=== PATIENT | female | born 1955 | race Caucasian/White ===

== ENCOUNTER → 2017-11-04 | Outpatient (CLI) | payer OTHER, MEDICARE ==
[~2017-11-04] MED LIST: CLONAZEPAM PO; COLACE100 MG OR; COLACE100 MG PO; DIAZEPAM 10 MG10 M1 PO; HYDROCODONE-AP1 EA10 PO; LYRICA 75 MG CA75 MG PO; MEDROLDOSEPACK PO; MOBIC15 MG PO; MOM OR; VICODIN PO; ZANAFLEX4 M1 PO
== END ==
LOC: M.RAD 10:28
DX: M43.27 Fusion of spine, lumbosacral region (principal); M47.896 Other spondylosis, lumbar region; M48.061 Spinal stenosis, lumbar region without neurogenic claudication; M54.42 Lumbago with sciatica, left side; M54.41 Lumbago with sciatica, right side

== ENCOUNTER → 2018-09-19 | Outpatient (CLI) | payer MEDICARE, OTHER | LOC: M.RAD 10:50 | DX: M47.896 Other spondylosis, lumbar region (principal); G89.29 Other chronic pain; Z98.890 Other specified postprocedural states ==

== ENCOUNTER → 2018-09-26 | Outpatient (CLI) | payer MEDICARE, OTHER ==
[2018-09-26 10:44] LABS: CREATININE 0.9 mg/dL (0.6-1.3)
== END ==
LOC: M.LAB 09-19 14:31
PROVIDERS: Internal Medicine
DX: K76.0 Fatty (change of) liver, not elsewhere classified (principal); M47.816 Spondylosis without myelopathy or radiculopathy, lumbar region; N28.1 Cyst of kidney, acquired; G89.29 Other chronic pain; Z88.8 Allergy status to other drugs, medicaments and biological substances; Z90.49 Acquired absence of other specified parts of digestive tract

== ENCOUNTER → 2019-02-22 | Outpatient (CLI) | payer MEDICARE, OTHER | LOC: M.MRI 15:25 | DX: M19.90 Unspecified osteoarthritis, unspecified site (principal); M43.27 Fusion of spine, lumbosacral region; G89.29 Other chronic pain; Z98.1 Arthrodesis status ==

== ENCOUNTER → 2019-03-01 | Outpatient (CLI) | payer MEDICARE, OTHER | LOC: M.MRI 17:11 | DX: M48.061 Spinal stenosis, lumbar region without neurogenic claudication (principal); M51.16 Intervertebral disc disorders with radiculopathy, lumbar region; M47.26 Other spondylosis with radiculopathy, lumbar region; M43.27 Fusion of spine, lumbosacral region ==

== ENCOUNTER → 2019-03-23 | Outpatient (CLI) | payer MEDICARE, OTHER ==
[~2019-03-23] MED LIST changes: +AMITRIPTYLINE H25 M2 PO; +MOBIC7.5 MG PO; +ULTRACET TABLET1 TAB PO; +ULTRAM 50MG TAB50 MG PO
--- NOTE | ~2019-03-23 | PAINCON ---
[address] [address] PAIN MANAGEMENT CONSULTATION Name: JESUSWILLIAMS JENNI [id number] Admission: 03/23/19 Attend Phys: Carol Clemente MD Discharge: Date of : 51 Report #: [id number] THIS REPORT FOR: //name// CC: Alexis Clemente DATE OF SERVICE: 03/23/2019 CHIEF COMPLAINT: Bilateral low back pain as well as pain in the arms. HISTORY: The patient is a 63-year-old female who has been referred to the pain clinic for evaluation of chronic pain. The patient has a history of lumbar radiculopathy. Because of the severity of her back problems, she has undergone surgery. She has had back surgery with placement of rods and pedicle screws. She has a history of scoliosis. She has had operations on 2 occasions. She has numerous areas of pain. She has suffered from rotator cuff problems. She has had right knee surgery, had right lower leg surgery, has had right foot surgery. She has had problems with carpal tunnel involving the right hand. She has a number of family members who also suffer from osteoarthritic type of pain. She has used tramadol in the past. She found that medication is helpful. She would like to resume its use. She finds activities of daily living to be quite problematic. Feels that sweeping, vacuuming and other activities of daily living can be quite problematic. Finds that use of warmth is helpful. Generally, she likes to keep her house warm. She sleeps on a blanket above and below her. Has complaints of swelling and inflammation in her ankles on both sides, has been problematic for quite some time. Her pain can be quite problematic and cause her sometimes to cry because of frustration and the severity of her pain. She has a sister who has cancer and is undergoing chemotherapy. She sometimes visits her in [place]. In [place], she has found tramadol could be purchased [id number]. She finds that, that medication has been helpful. She would like to try it again to note its efficacy and decreasing her pain and discomfort. ALLERGIES: No known drug allergies. CURRENT MEDICATIONS: Amitriptyline 25 mg total of 50 mg at bedtime, clonazepam 2 mg, meloxicam 7.5 mg, tramadol 37.5/325. PAST MEDICAL HISTORY: Arthritis, lumbar radicular pain. PAIN CLINIC ASSESSMENT AND PQRS: 1. The patient has osteoarthritic changes in her back. She is not being treated for rheumatoid arthritis. 2. Height 5 feet 5 inches, weight 185 pounds, BMI is 30. 3. Vital Signs: Blood pressure 133/62, heart rate 109, respiratory rate 16, room air saturation 95%, [place] 98[place] [address] PAIN MANAGEMENT CONSULTATION Name: WILLIAMS LEE Room: [facility]#: [id number] Admission: 03/23/19 Attend Phys: Carol Clemente MD Discharge: Date of : 51 Report #: [id number] 4. Pain intensity is 8/10. 5. Fall history. The patient has not fallen in the last 3 months. 6. Blood thinner. The patient is not on a blood thinning medication. 7. Hypertension. The patient is not being treated for hypertension. 8. Opioids greater than 6 weeks. The patient is not on an opioid regimen. 9. Risk assessment tool, low for opioid use. 10. Functional assessment tool. 11. Recreational drug use, the patient denies. 12. Tobacco: The patient denies. 13. Alcohol: The patient denies frequent use of alcoholic beverages. PHYSICAL EXAMINATION: GENERAL: The patient is a well-developed, well-nourished, female. Appears her stated age. She is alert and oriented x 3. Her affect is appropriate. Speech is fluent, somewhat choppy, Croatian does not appear to be her first language. NECK: Without adenopathy or JVD. MUSCULOSKELETAL: Upper extremity muscle strength judged to be 5-/5 for the major muscle groups in the upper extremity. The patient complains of pain involving her right hand with carpal tunnel syndrome. The patient also has some decreased strength in her left hand. She has had problems with her hand greater than 15 and has been problematic for quite a number of years. HEART: Regular rate. ABDOMEN: Nontender. Bowel sounds present. EXTREMITIES: The patient has a well-healed scar in the lower portion of her back. The patient stands listing to the right. The patient has a well-healed scar in the right knee, well-healed scar in the anterior portion of her tibia and a well-healed scar in her right foot. The patient states that she has had a fracture of her ankle on the right side. Walks and moves with a limp. Has perception of some weakness in her right leg. LABORATORY DATA: MRI of the lumbar spine dated 03/01/2019. Findings; extensive post-surgical changes of the posterior spine with fixation and interbody fusion at L3 through S1. Mild to moderate thecal sac stenosis at L1, L2 and L3. Moderate to severe/severe left neural foraminal stenosis at L1-L2 due to foraminal disk bulging and facet arthrosis and endplate osteophyte ridging. IMPRESSION: 1. Bilateral low back pain. 2. Osteoarthritic changes involving the right ankle, knee. RECOMMENDATIONS: We discussed treatment options with the patient. The patient has used tramadol. She has used this while in [place]. In [place], these medications can be bought [id number]. She feels that this medication has been beneficial and would like to continue with its use. She feels that the meloxicam medication 7.5 mg is helpful. She uses daily[place] [address] PAIN MANAGEMENT CONSULTATION Name: JESUSWILLIAMS JENNI Room: [facility]#: [id number] Admission: 03/23/19 Attend Phys: Carol Clemente MD Discharge: Date of : 51 Report #: [id number] any GI complications. She also feels that the clonazepam is helpful as well as amitriptyline to promote sleep and help with pain. She does have a complaint of dry mouth. This might be secondary to the use of the amitriptyline medication. A script for her medications of tramadol 50 mg 1 p.o. t.i.d. have been written. The patient will follow up in the near future. We would like to thank you for letting us participate in her care. We hope she continues to improve. By: [id number]. Paul Clemente MD /ANTOINE
== END ==
LOC: M.PC 03-16 10:10
DX: M19.071 Primary osteoarthritis, right ankle and foot (principal); G89.29 Other chronic pain; Z79.891 Long term (current) use of opiate analgesic; Z79.899 Other long term (current) drug therapy

== ENCOUNTER → 2019-04-20 | Outpatient (CLI) | payer MEDICARE, OTHER ==
[~2019-04-20] MED LIST changes: +KLONOPIN2 MG PO; +MELOXICAM15 MG PO
--- NOTE | 2019-05-03 09:09 | PAINCON ---
[address] [address] PAIN MANAGEMENT CONSULTATION Name: JESUSWILLIAMS JENNI [id number] Admission: 04/20/19 Attend Phys: Carol Clemente MD Discharge: Date of : 51 Report #: [id number] THIS REPORT FOR: //name// CC: Alexis Clemente DATE OF SERVICE: 04/20/2019 CHIEF COMPLAINT: Here for medication renewal. HISTORY: The patient is a 63-year-old female who has been seen in the pain clinic because of chronic pain involving her low back. She has undergone surgery in her back in the past. She has had placement of rods and pedicle screws are in place at this point. She also has a history of scoliosis. She has had operations on 2 occasions. Still suffers some pain in the rotator cuff of her shoulders. She has some pain in the right knee. She has also had right foot surgery. She has had some problems with carpal tunnel syndrome involving her right hand. Osteoarthritis runs in her family. Complains of some history of swelling in her ankles on both sides. She has a sister in [place] who is undergoing chemotherapy. She has used tramadol. This medication has been helpful in the past. She was provided with tramadol at the last visit. Overall, she feels that this medication is beneficial and she would like to continue its use. ALLERGIES: No known drug allergies. CURRENT MEDICATIONS: Amitriptyline 25 mg, total of 50 mg at bedtime, clonazepam 2 mg, Meloxicam 7.5 mg, and tramadol 37.5/325. PAIN CLINIC ASSESSMENT/PQRS: 1. The patient is not being treated for rheumatoid arthritis. She does have some rheumatoid pain in her hands. She is not being treated for osteoarthritis. She has noted some osteoarthritic changes in her back. 2. Height 5 feet 5 inches, weight 185 pounds, BMI is 30. 3. Vital signs: Blood pressure 156/98, heart rate 111, respiratory rate 16, room air saturation 91%, temperature 98.2. 4. Pain intensity 5/10. 5. Fall history: The patient has not fallen in the last 3 months. 6. Blood thinner. The patient is not on a blood thinning medication. 7. Hypertension. The patient is not being treated for hypertension. 8. Opioids greater than 6 weeks. The patient is receiving her medication from one source of her primary. 9. Risk assessment tool, low for opioid use. 10. Functional assessment tool. 11. Recreational drug use. The patient denies. 12. Tobacco: The patient [place] [address] PAIN MANAGEMENT CONSULTATION Name: JESUSWILLIAMS JENNI Room: [facility]#: [id number] Admission: 04/20/19 Attend Phys: Carol Clemente MD Discharge: Date of : 53 Report #: [id number] 13. Alcohol: The patient denies frequent use of alcoholic beverages. PHYSICAL EXAMINATION: GENERAL: The patient is a well-developed, well-nourished female. She is alert and oriented x 3. She is accompanied by a product marketing manager. Her affect is appropriate. Speech is fluent. HEENT: Somewhat choppy Romansh. The patient has no problems with understanding Romansh. It does not appear to be her first language. NECK: Without adenopathy or JVD. HEART: Regular rate, somewhat tachypneic at 112. EXTREMITIES: Upper extremity muscle strength is judged to be 5-/5 for the major muscle groups in the upper extremity. The patient has some decreased physiotherapy aide strength in her right hand and what appears might be carpal tunnel syndrome. The patient has some decreased strength in her left hand. Her hands show some signs of rheumatoid changes with ulnar deviation particularly on the left side. ABDOMEN: Nontender. Bowel sounds present. EXTREMITIES: Upper extremity: The patient has a well-healed scars in the lower portion of her back. She stands listing/leaning to the right. Has a well-healed scar on the right knee. Well-healed scar in the anterior portion of her tibia and a well-healed scar on her right foot. The patient states that she has had fractures of her ankle on the right side. She walks and moves with a limp. Has perception of weakness in her right leg. IMPRESSION: 1. Low back pain. 2. Osteoarthritic changes involving the right ankle, knee. 3. Rheumatoid arthritic changes involving her hands. 4. Fibromyalgia. RECOMMENDATIONS: We discussed treatment options with the patient. At this point, she feels that the tramadol medication has been of benefit. She is not having any problems with her stomach. We will have increase her meloxicam from 7.5 to 15 mg daily. She will decrease and break the tablets in half should she notice some worsening of pain or GI discomfort. She will continue with tramadol 50 mg 1 p.o. t.i.d. She will call us if she has any concerns. We would like to thank you for letting us participate in her care. <ELECTRONICALLY SIGNED> By: Carol Clemente MD 05/03/19 [id number]. Paul Clemente MD /nt
== END ==
LOC: M.PC 06:00
DX: Z76.0 Encounter for issue of repeat prescription (principal); M54.5 Low back pain; M19.071 Primary osteoarthritis, right ankle and foot; M17.11 Unilateral primary osteoarthritis, right knee; M06.842 Other specified rheumatoid arthritis, left hand; M06.841 Other specified rheumatoid arthritis, right hand; M79.7 Fibromyalgia; I10 Essential (primary) hypertension; Z79.891 Long term (current) use of opiate analgesic; Z79.899 Other long term (current) drug therapy

== ENCOUNTER → 2019-05-18 | Outpatient (CLI) | payer MEDICARE, OTHER ==
--- NOTE | 2019-05-23 10:01 | PAINCON ---
[address] [address] PAIN MANAGEMENT CONSULTATION Name: WILLIAMS LEE Room: [facility]#: [id number] Admission: 05/18/19 Attend Phys: Carol Clemente MD Discharge: Date of : 53 Report #: [id number] THIS REPORT FOR: //name// CC: Alexis Clemente PRIMARY PHYSICIAN: Alexis Montgomery MD CHIEF COMPLAINT: Chronic low back pain. HISTORY: The patient is a 63-year-old female who has been seen in the pain clinic. As you recall, she has chronic back pain. She has had surgeries in the past. She has rods and pedicle screws in the lower portion of her back. She has a history of scoliosis. Two operations have been performed on her back in the past. Also has some problems with her shoulders involving a rotator cuff. Has pain in her spine, pain in her toes and her left hand. Has a sister who is dying of breast cancer in [place]. She continues to be treated with chemotherapy. The patient wishes if she could be with her more during her time of need. ALLERGIES: No known drug allergies. CURRENT MEDICATIONS: Amitriptyline 25 mg, total of 50 mg at bedtime; clonazepam 2 mg; Meloxicam 7.5 mg; tramadol 37.5/325. PAIN CLINIC ASSESSMENT/PQRS: 1. The patient is not being treated for rheumatoid arthritis. She does have some rheumatoid pain in her hands. She is not being treated for osteoarthritis. She does have some arthritic changes in her back. 2. Height 5 feet 5 inches, weight 188 pounds, BMI is 31. 3. Vital signs: Blood pressure 137/77, heart rate 107, respiratory rate 16, room air saturation is 90. 4. Temperature 98.0. 5. Pain intensity 5/10. 6. Fall history: The patient has not fallen in the last 3 months. 7. Blood thinner. The patient is not on a blood thinning medication. 8. Hypertension. The patient is not being treated for hypertension. 9. Opioids greater than 6 weeks. The patient is receiving medications from the pain clinic. 10. Risk assessment tool, low for opioid use. 11. Functional assessment tool. 12. Recreational drug use: The patient denies. 13. Tobacco: The patient denies use of tobacco. 14. Alcohol: The patient denies frequent use of alcoholic beverages. PHYSICAL EXAMINATION: [place] [address] PAIN MANAGEMENT CONSULTATION Name: WILLIAMS LEE Room: [facility]#: [id number] Admission: 05/18/19 Attend Phys: Carol Clemente MD Discharge: Date of : 53 Report #: [id number] GENERAL: The patient is a well-developed, well-nourished female. Appears her stated age. She is alert and oriented x 3. Her affect is appropriate. Speech is fluent. HEENT: Normocephalic, atraumatic. Extraocular eye muscles intact. The patient's language is fluent. It does not appear that Bengali is her first language. Speaks Belarusian fluently. NECK: Without adenopathy or JVD. HEART: Regular rate. ABDOMEN: Nontender. MUSCULOSKELETAL: Upper extremity muscle strength judged to be 5-/5 for the major muscle groups in the upper extremity. 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 Symptomatology not inconsistent with carpal tunnel syndrome. The patient has rheumatological changes with ulnar deviation involving her left hand. ABDOMEN: Nontender. Bowel sounds present. EXTREMITIES: Upper extremity muscle strength, the patient has a well-healed scar in the lower portion of her back. The patient has had surgery in her right foot. Ambulates with a slight limp. Has some perception of weakness in her right leg. IMPRESSION: 1. Low back pain. 2. Osteoarthritic changes involving the right ankle and knee. 3. Rheumatoid arthritic changes involving her hand. 4. Fibromyalgia. RECOMMENDATIONS: We discussed the treatment options with the patient. Risks and benefits of injections were discussed. At this point, the patient has pain involving her right elbow and arm. We will continue with the tramadol medication. She finds that this medication has been beneficial. She will also continue with meloxicam, the nonsteroidal anti-inflammatory medication to 15 mg daily. She will take a notice of how her stomach is feeling. Should she develop GI complaint, she will consider decreasing or stopping the meloxicam medication. We have discussed the problems with opioid medications. This medication has caused some folks to have problems. We discussed that 70,000 people last year as a result of overdose on medication. The patient states she is taking her medications as prescribed. She is still concerned about her sister. She is dying of cancer and lives in [place]. She would like to be with her more, but situation does not afford her that luxury. She feels overall that she is about 50% improved with her current medical regimen. Has returned today for renewal of the medication. A script for her medications have been provided. She will continue with the tramadol 50 mg 1 p.o. q.i.d. 120 tablets, Klonopin 2 mg 1 p.o. daily, amitriptyline 25 mg, total of 50 mg daily and meloxicam 15 mg daily[address] [address] PAIN MANAGEMENT CONSULTATION Name: WILLIAMS LEE [facility] [id number] Admission: 05/18/19 Attend Phys: Carol Clemente MD Discharge: Date of : 53 Report #: [id number] We would like to thank you for letting us participate in her care. We hope she continues to improve. <ELECTRONICALLY SIGNED> By: Carol Clemente MD 05/23/19 [id number] [id number]. Paul Clemente MD /nt
== END ==
LOC: M.PC 05:32
DX: G89.29 Other chronic pain (principal); M17.11 Unilateral primary osteoarthritis, right knee; M19.071 Primary osteoarthritis, right ankle and foot; M06.849 Other specified rheumatoid arthritis, unspecified hand; Z79.899 Other long term (current) drug therapy; Z79.891 Long term (current) use of opiate analgesic

== ENCOUNTER → 2019-06-15 | Outpatient (CLI) | payer MEDICARE, OTHER ==
--- NOTE | ~2019-06-15 | PAINCON ---
[address] [address] PAIN MANAGEMENT CONSULTATION Name: WILLIAMS LEE Room: [facility] ERIN Lauryn#: [id number] Admission: 06/15/19 Attend Phys: Carol Clemente MD Discharge: Date of : 51 Report #: [id number] THIS REPORT FOR: //name// CC: Alexis Clemente DATE OF SERVICE: 06/15/2019 CHIEF COMPLAINT: The pain has improved with the medications. HISTORY: The patient is a 63-year-old female who has been seen in the pain clinic because of chronic pain. She has pain in her low back area. Also, has pain in her right arm and in the elbow area. Overall, things have improved since she has started her new medication regimen. She is not having any problems with it. States that she has more energy. She is able to engage in activities of daily living with less discomfort. She is able to mop and sweep her kitchen with less problem. She had a reasonable Thanksgiving. Her sister who is dying of cancer in [place] is still doing poorly. Her other family members live reasonably close to her. She is considering surgery. States that she has pain and discomfort in her shoulders and arms as a result of weight from her breasts. She has had family members who have had breast reduction surgeries and found that they were more comfortable as a result. She is considering visiting a plastic surgeon to be evaluated for the possibility of breast reduction surgery. ALLERGIES: No known drug allergies. CURRENT MEDICATIONS: Amitriptyline 25 mg, total of 50 mg at bedtime, clonazepam 2 mg, meloxicam 7.5 mg, trazodone 37.5/325 mg. PAIN CLINIC ASSESSMENT AND PQRS: 1. The patient is not being treated for rheumatoid arthritis. She does have some rheumatoid type symptomatology in her hands. She is not being treated for osteoarthritis. She does have some arthritic changes in her back. 2. Height 5 feet 5 inches, weight 188 pounds, BMI is 31.0. 3. Vital signs: Blood pressure 126/83, heart rate 99, respiratory rate 16, room air saturation 93%. 4. Temperature is 98.3. 5. Pain intensity 08/21. 6. Fall risk. The patient has not fallen in the last 3 months. 7. Blood thinner. The patient is not on a blood thinning medication. 8. Hypertension. The patient is not being treated for hypertension. 9. Opioids greater than 6 weeks. The patient received medication from one source the pain clinic. 10. Risk assessment tool, low for opioid use. 11. Functional assessment tool. [place] [address] PAIN MANAGEMENT CONSULTATION Name: WILLIAMS LEE Room: [facility]#: [id number] Admission: 06/15/19 Attend Phys: Carol Clemente MD Discharge: Date of : 51 Report #: [id number] 12. Recreational drug use: The patient denies. 13. Tobacco: The patient denies. 14. Alcohol. The patient denies frequent use of alcoholic beverages. PHYSICAL EXAMINATION: GENERAL: The patient is a well-developed, well-nourished female. Appears her stated age. She is alert and oriented x 3. Her affect is appropriate. Speech is fluent. Georgian is fluent, but apparently not her first language. HEENT: Normocephalic, atraumatic. Extraocular eye muscles intact. Sclerae nonicteric. Mucous membranes are moist. NECK: Without adenopathy or JVD. ABDOMEN: Nontender. HEART: Regular rate. MUSCULOSKELETAL: Upper extremity muscle strength judged to be 5-/5 for the major muscle groups in the upper extremity. The patient notes some decreased chain maker strength in her hands. Some discomfort consistent with carpal tunnel syndrome. Notes some rheumatological changes with ulnar deviation of her hands on the left. ABDOMEN: Nontender. Bowel sounds present. EXTREMITIES: Upper extremity muscle strength judged to be 5-/5 for the major muscle groups in the upper extremity. The patient has well-healed scar in the lower portion of her back. The patient had surgery on her right foot. Ambulates with a slight limp. Has some perception of weakness in her right leg, has a slightly right leaning tilt with her gait. IMPRESSION: 1. Low back pain. 2. Osteoarthritis changes involving the right ankle, knee. 3. Rheumatological arthritic changes involving her hand. 4. Fibromyalgia. RECOMMENDATIONS: We discussed treatment options with the patient. Risks and benefits of her medications have been discussed. She feels that the medications are beneficial. She feels that she has had some increase in her energy level. She has been able to engage in more activities of daily living with less discomfort. She feels that she has her life back. She notes that there is some stiffness in the morning, but things continue to improve as she continues to ambulate and become more active. She has taken the medications as prescribed. She is not having any complications. We will continue with the patient's use of amitriptyline 25 mg 2 tablets at bedtime. She feels that this medication is helping with her sleep as well as enabling her to do more during the course of the day with less discomfort. We will continue with the meloxicam. She will continue to monitor her GI tract. Should she have any problems with her GI tract, she will stop taking the meloxicam. We will also continue with Klonopin 2 mg 1 [place] [address] PAIN MANAGEMENT CONSULTATION Name: WILLIAMS LEE Room: [facility].#: [id number] Admission: 06/15/19 Attend Phys: Carol Clemente MD Discharge: Date of : 51 Report #: [id number] We would like to thank you for letting us participate in her care. We are glad that she has noticed an improvement in her health and her feelings of health and wellbeing. She will call us if she has any concerns. By: [id number] Clemente MD /ANTOINE
== END ==
LOC: M.PC 04:59
DX: M54.5 Low back pain (principal); M19.90 Unspecified osteoarthritis, unspecified site; M79.7 Fibromyalgia

== ENCOUNTER → 2019-07-13 | Outpatient (CLI) | payer MEDICARE, OTHER ==
--- NOTE | ~2019-07-13 | PAINCON ---
[address] [address] PAIN MANAGEMENT CONSULTATION Name: JESUSWILLIAMSHER ARTEAGA [id number] Admission: 07/13/19 Attend Phys: Carol Clemente MD Discharge: Date of : 51 Report #: [id number] THIS REPORT FOR: //name// CC: Alexis Clemente DATE OF SERVICE: 07/13/2019 CHIEF COMPLAINT: Here for medication renewal and I am having some pain in my shoulders because of heavy breasts. HISTORY: The patient is a 63-year-old female who has been followed in the pain clinic because of chronic pain. She finds that tramadol continues to be helpful with her pain control. She has pain in a number of areas. Has pain in her hips on the left and right. This radiates down into the level of her feet. Has some discomfort in the area of her groin. She has been doing reasonably well. About 3 weeks ago, she started to increase her level of activity to clean around the house. Notes that her pain has gotten somewhat worse. The cold weather has been bothersome as well. Notes that her pain at this juncture is limiting her ability to engage in activities. She rates her pain as an 8/10. Feels that her pain is about 50% improved with her current medical regimen. She is considering mammoplasty reduction. Notes that she has pain and discomfort in her upper shoulders as a result of her breasts as well as some that the straps continue to cut down into her shoulder area. She has returned today for renewal of her medication. ALLERGIES: No known drug allergies. CURRENT MEDICATIONS: Amitriptyline 25 mg for a total of 50 mg at bedtime, clonazepam 2 mg, meloxicam 15 mg p.o. daily, trazodone 37.5/325. PAIN CLINIC ASSESSMENT AND PQRS: 1. The patient is not being treated for rheumatoid arthritis. She does have some rheumatoid-type symptoms in her hand. She is not being treated for osteoarthritis. Does have some arthritic changes in her back. 2. Height 5 feet 5 inches, weight 190 pounds, BMI is 31. 3. Vital Signs: Blood pressure 130/79, heart rate 95, respiratory rate 16, room air saturation 98%, temperature 98.4. 4. Pain intensity 8/10. 5. Fall history: The patient has not fallen in the last 3 months. 6. Blood thinner. The patient is not on a blood-thinning medication. 7. Hypertension. The patient is not being treated for hypertension. 8. Opioids greater than 6 weeks. The patient received medication from one source, the pain clinic. 9. Risk assessment tool, [place] [address] PAIN MANAGEMENT CONSULTATION Name: WILLIAMS LEE Room: [facility]#: [id number] Admission: 07/13/19 Attend Phys: Carol Clemente MD Discharge: Date of : 51 Report #: [id number] 10. Functional assessment tool. These have been reviewed. 11. Recreational drug use: The patient denies. 12. Tobacco: The patient denies. 13. Alcohol: The patient denies. PHYSICAL EXAMINATION: GENERAL: The patient is a well-developed, well-nourished female. She is alert and oriented x 3. Her affect is appropriate. Speech is fluent. HEENT: Normocephalic, atraumatic. Extraocular eye muscles intact. Sclerae nonicteric. Mucous membranes are moist. The patient is fluent in Green[place]ic. It is apparent this is not her first language. NECK: Without adenopathy or JVD. The patient has some discomfort in her shoulders. Shows some areas where the bra straps have cut into her shoulder. HEART: Regular rate. MUSCULOSKELETAL: Upper extremity muscle strength judged to be 5-/5 for the major muscle groups in the upper extremity. The patient has some pain in the area of the carpal tunnel. Notes some rheumatological changes with ulnar deviation of her fingers on the left. ABDOMEN: Nontender. EXTREMITIES: Upper extremity muscle strength judged to be 5-/5 for the major muscle groups in the upper extremity. The patient has well-healed scar in the lower portion of her back. The patient has had surgery on her right foot. Walks with slight limp. Has favoring of her gait to the left because of right knee pain. IMPRESSION: 1. Low back pain, bilateral. 2. Osteoarthritic changes involving the right ankle and knee. 3. Rheumatological changes involving her hand. 4. Fibromyalgia. 5. Shoulder pain secondary to the weight of her breasts. RECOMMENDATIONS: We discussed treatment options with the patient. At this juncture, we will continue with her medications. She feels that the medications of tramadol 50 mg 1 p.o. q.i.d. is helpful. Feels that the meloxicam 15 mg 1 p.o. daily is helpful as well. We will continue with the amitriptyline at bedtime. She will also continue with the Klonopin. A script for her medications has been rewritten. She will follow up with her primary physician in regards to the pain in her shoulders secondary to breast pain. We explained that she may benefit from seeing a plastic surgeon. Again, they would be able to explain [place] [address] PAIN MANAGEMENT CONSULTATION Name: WILLIAMS LEE Room: [facility]#: [id number] Admission: 07/13/19 Attend Phys: Carol Clemente MD Discharge: Date of : 51 Report #: [id number] We would like to thank you for letting us participate in her care. We hope she continues to improve. The scripts as listed above have been renewed. By: [id number]. Paul Clemente MD /nt
== END ==
LOC: M.PC 10:31
DX: M54.5 Low back pain (principal); M17.11 Unilateral primary osteoarthritis, right knee; M19.071 Primary osteoarthritis, right ankle and foot; M79.7 Fibromyalgia

== ENCOUNTER → 2019-08-29 | Outpatient (CLI) | payer MEDICARE, OTHER ==
--- NOTE | 2019-09-01 09:07 | PAINCON ---
[address] [address] PAIN MANAGEMENT CONSULTATION Name: WILLIAMS LEE Room: [facility]#: [id number] Admission: 08/29/19 Attend Phys: Carol Clemente MD Discharge: Date of : 51 Report #: [id number] THIS REPORT FOR: //name// cc: Alexis Montgomery MD, David L. MD ~ THIS REPORT FOR: //name// CC: Alexis Clemente DATE OF SERVICE: 08/29/2019 PRIMARY CARE PHYSICIAN: Alexis Montgomery MD CHIEF COMPLAINT: Low back pain and left hip pain down into the leg. HISTORY: The patient is a 63-year-old female who has been followed in the pain clinic because of chronic pain. Describes the pain as a 5/10. It involves her low back. Pain radiates down into her left hip and left leg. She found that her medications were helpful. She ran out of her medications. She noticed an increase in her pain. She is having more difficulty sleeping because of the pain. She has returned today with the hopes of renewing the medication. Pain is most problematic with activity. Notes that the pain increased somewhat with changes in temperature. ALLERGIES: No known drug allergies. CURRENT MEDICATIONS: Amitriptyline 25 mg for a total of 50 mg at bedtime, clonazepam 25 mg, meloxicam 15 mg daily, tramadol 50 mg 1 p.o. q.i.d. PAIN CLINIC ASSESSMENT AND PQRS: 1. The patient is not being treated for rheumatoid arthritis. She does have some osteoarthritic changes in her back. 2. Height 5 feet 5 inches, weight 179 pounds, BMI is 30. 3. Vital Signs: Blood pressure 156/91, heart rate 99, respiratory rate 16, room air saturation 97%, temperature 98.2. 4. Pain intensity 5/10. 5. Fall history: The patient has not fallen in the last 3 months. 6. Blood thinner. The patient is not on a blood thinning medication. 7. Hypertension. The patient is not being treated for hypertension. 8. Opioids greater than 6 weeks. The patient received medication from one source, the pain clinic. 9. Risk assessment tool, low for opioid use. 10. Functional assessment tool reviewed. 11. Recreational drug use: The patient denies. 12. Tobacco: The patient [place] [address] PAIN MANAGEMENT CONSULTATION Name: WILLIAMS LEE Room: [facility]#: [id number] Admission: 08/29/19 Attend Phys: Carol Clemente MD Discharge: Date of : 51 Report #: [id number] 13. Alcohol: The patient denies use of alcoholic beverages. PHYSICAL EXAMINATION: GENERAL: The patient is a well-developed, well-nourished female. Appears her stated age. She is alert and oriented x 3. Her affect is appropriate. Speech is fluent. HEENT: Normocephalic, atraumatic. Extraocular eye muscles intact. Sclerae nonicteric. Mucous membranes are moist. The patient's language she indicates Filipino is not her first language, but speaks Filipino fluently. NECK: Without adenopathy or JVD. Some discomfort in the shoulder area. Does complain of pain in this area secondary to pendulous breasts. HEART: Regular rate. MUSCULOSKELETAL: Upper extremity muscle strength judged to be 5/5 for the major muscle groups in the upper extremity. The patient has some pain and discomfort in the carpal tunnel area. Has some rheumatological changes with ulnar deviation of her fingers to the left. ABDOMEN: Nontender. 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 The patient has a well-healed scar in the lower portion of her back. The patient has had surgery on her right foot. Does walk with a slight limp. Has right knee pain. IMPRESSION: 1. Low back pain/bilateral. 2. Osteoarthritic changes involving the right ankle and knee. 3. Rheumatological changes involving her hand. 4. Fibromyalgia. 5. Shoulder pain secondary to pendulous breasts. RECOMMENDATIONS: We discussed treatment options with the patient. At this juncture, we will continue with her medications. A script has been provided for renewal of her Klonopin. She finds that this medication continues to be helpful. We have also written for the amitriptyline. The patient feels that this medication is helpful with muscle pain as well as help with a better night sleep. She is taking the meloxicam medication. She is not having any problems with her GI tract at this point. She will stop taking the medication should she notice some problem with her GI tract. The patient feels that the Ultram medication continues to be beneficial and continues to take it on a regular basis. This helps with her pain. She will call us if she has any concerns. A renewal of all these medications have been rewritten. Questions [place] [address] PAIN MANAGEMENT CONSULTATION Name: WILLIAMS LEE Room: [facility]#: [id number] Admission: 08/29/19 Attend Phys: Carol Clemente MD Discharge: Date of : 51 Report #: [id number] We would like to thank you for letting us participate in her care. We hope she continues to improve. <ELECTRONICALLY SIGNED> By: Carol Clemente MD 09/01/19 [id number] Clemente MD /[facility]
== END ==
LOC: M.PC 04:32
DX: M17.0 Bilateral primary osteoarthritis of knee (principal); M19.072 Primary osteoarthritis, left ankle and foot; M19.071 Primary osteoarthritis, right ankle and foot; M79.7 Fibromyalgia